=== PATIENT | female | born 1970 | race Caucasian/White ===

== ENCOUNTER 2023-01-27 09:40 | Outpatient (OUT) | payer OTHER, SELFPAY ==
--- NOTE | 2023-01-27 09:55 | MM_ITS ---
Patient: ANGELICA LANCE Exam Date: 01/27/2023 : 1970 Gender:F Ordering : DR Aidan Matias . Admission #: [id number] Family : Order #: [id number] CLICK HERE TO VIEW EXAM RADIOLOGY REPORT PROCEDURE: MM TOMOSYNTHESIS SCREENING BI COMPARISON: MG MAMM LEVI SCRN W CAD DIG, 01/11/2013. INDICATIONS: Screening mammogram Z12.31 Calculator Name NCI Breast Cancer Risk Assessment Tool 5 Year Breast Cancer Risk 1.30% Lifetime Breast Cancer Risk 12.10% Personal Breast Cancer No Personal Ovarian Cancer No Treatments None Family Cancers Father with colon, liver cancer at age 48. LOCATION: [facility] BREAST COMPOSITION: Scattered areas fibroglandular density. FINDINGS: DIAGNOSTIC CATEGORY 1--NEGATIVE. RIGHT BREAST: No significant suspicious finding. No significant change has occurred. LEFT BREAST: No significant suspicious finding. No significant change has occurred. RECOMMENDATIONS: ROUTINE MAMMOGRAM AND CLINICAL EVALUATION IN 12 MONTHS. PLEASE NOTE: A NORMAL MAMMOGRAM DOES NOT EXCLUDE THE POSSIBILITY OF BREAST CANCER. A CLINICALLY SUSPICIOUS PALPABLE LUMP SHOULD BE BIOPSIED. Dictated by: Jose Luis José M.D. on 01/27/2023 at 13:36 Approved by: Jose Luis José M.D. on 01/27/2023 at 13:37
== END 2023-01-27 09:41 | disposition home or self-care (01) ==
LOC: MAMMO 09:45
PROVIDERS: PCP Family Medicine; Visit Provider Family Medicine
DX: Z12.31 Encounter for screening mammogram for malignant neoplasm of breast (principal); Z80.0 Family history of malignant neoplasm of digestive organs
CPT/HCPCS: 77063; 77067

== ENCOUNTER 2023-02-02 09:08 | Outpatient (OUT) | payer OTHER, SELFPAY ==
[2023-02-02 09:39] LABS: Basophils Absolute Auto 0.1 10^3/uL (0.0-0.1); Basophils Percent Auto 0.7 % (0.2-2.0); Eosinophils Absolute Auto 0.2 10^3/uL (0.0-0.7); Eosinophils Percent Auto 2.5 % (0.9-7.0); Hematocrit 37.2 % (36.0-48.0); Immature Granulocytes Abs Auto 0.04 10^3/uL (0.00-0.03); Immature Granulocytes Pct Auto 0.4 % (0.0-0.5); Lymphocytes Absolute Auto 2.5 10^3/uL (1.2-3.8); Lymphocytes Percent Auto 28.3 % (20.5-60.0); Mean Corpuscular HGB Conc 32.3 g/dL (29.9-35.2); Mean Corpuscular Hemoglobin 28.5 pg (26.7-34.0); Mean Corpuscular Volume 88.4 fL (81.0-99.0); Mean Platelet Volume 8.9 fL (9.5-13.5); Monocytes Absolute Auto 0.6 10^3/uL (0.3-0.8); Monocytes Percent Auto 6.3 % (1.7-12.0); Neutrophils Absolute Auto 5.5 10^3/uL (1.4-6.5); Neutrophils Percent Auto 61.8 % (43.0-75.0); Platelet Count 256 10^3/uL (150-450); Red Blood Count 4.21 10^6/uL (4.20-5.40); Red Cell Distribution Width 13.5 % (11.0-15.0)
[2023-02-02 09:43] LABS: Estimated Average Glucose 131 mg/dL; Glycohemoglobin A1C 6.2 % (4.5-6.2)
[2023-02-02 10:06] LABS: Alanine Aminotransferase 26 U/L (14-59); Albumin Level 3.3 g/dL (3.4-5.0); Alkaline Phosphatase 86 U/L (46-116); Anion Gap 11.1; Aspartate Amino Transferase 14 U/L (15-37); BUN Creatinine Ratio 26.9; Bilirubin Total 0.3 mg/dL (0.2-1.0); Carbon Dioxide 26.7 mmol/L (21.0-32.0); Chloride 103 mmol/L (98-107); Chol HDL Ratio 5.7; Cholesterol 189 mg/dL (<=200); Estimated GFR (African America >60 (>=60); Estimated GFR (Non-African Ame >60 (>=60); Free T3 2.96 pg/mL (2.18-3.98); Globulin 3.4 g/dL; Glucose 122 mg/dL (74-106); HDL Cholesterol 33 mg/dL (40-60); Potassium 3.8 mmol/L (3.5-5.1); Sodium 137 mmol/L (136-145); Thyroid Stimulating Hormone 3.042 uIU/mL (0.358-3.740); Total Protein 6.7 g/dL (6.4-8.2); Triglycerides 156 mg/dL (<=150); VLDL CHOLESTEROL 31.2 mg/dL
== END 2023-02-02 09:09 | disposition home or self-care (01) ==
LOC: LAB 09:10
PROVIDERS: PCP Family Medicine; Visit Provider Family Medicine
DX: Z00.00 Encounter for general adult medical examination without abnormal findings (principal)
CPT/HCPCS: 36415; 80053; 80061; 83036; 84436; 84443; 84481; 85025

== ENCOUNTER 2024-07-31 10:02 | Outpatient (OUT) | payer OTHER, SELFPAY ==
[2024-07-31 10:20] LABS: Basophils Absolute Auto 0.1 10^3/uL (0.0-0.1); Basophils Percent Auto 0.7 % (0.2-2.0); Eosinophils Absolute Auto 0.2 10^3/uL (0.0-0.7); Eosinophils Percent Auto 2.5 % (0.9-7.0); Hematocrit 41.4 % (36.0-48.0); Hemoglobin 13.9 g/dL (12.0-16.0); Immature Granulocytes Abs Auto 0.07 10^3/uL (0.00-0.03); Immature Granulocytes Pct Auto 0.8 % (0.0-0.5); Lymphocytes Percent Auto 23.6 % (20.5-60.0); Mean Corpuscular HGB Conc 33.6 g/dL (29.9-35.2); Mean Corpuscular Hemoglobin 29.8 pg (26.7-34.0); Mean Corpuscular Volume 88.8 fL (81.0-99.0); Monocytes Absolute Auto 0.6 10^3/uL (0.3-0.8); Monocytes Percent Auto 6.5 % (1.7-12.0); Neutrophils Absolute Auto 5.6 10^3/uL (1.4-6.5); Neutrophils Percent Auto 65.9 % (43.0-75.0); Platelet Count 227 10^3/uL (150-450); Red Blood Count 4.66 10^6/uL (4.20-5.40); Red Cell Distribution Width 13.1 % (11.0-15.0); White Blood Count 8.5 10^3/uL (4.0-11.0)
[2024-07-31 10:43] LABS: Estimated Average Glucose 171 mg/dL; Glycohemoglobin A1C 7.6 % (4.5-6.2)
[2024-07-31 11:08] LABS: Alanine Aminotransferase 37 U/L (14-59); Albumin Globulin Ratio 0.9; Albumin Level 3.4 g/dL (3.4-5.0); Alkaline Phosphatase 103 U/L (46-116); Anion Gap 15.4; Aspartate Amino Transferase 31 U/L (15-37); BUN Creatinine Ratio 28.3; Bilirubin Total 0.4 mg/dL (0.2-1.0); Calcium 9.9 mg/dL (8.5-10.1); Carbon Dioxide 24.1 mmol/L (21.0-32.0); Chloride 101 mmol/L (98-107); Chol HDL Ratio 5.4; Cholesterol 194 mg/dL (<=200); Estimated GFR (African America >60 (>=60 mL/min/1.73m^2); Estimated GFR (Non-African Ame >60 (>=60 mL/min/1.73m^2); Free T3 2.67 pg/mL (2.18-3.98); Globulin 3.6 g/dL; Glucose 237 mg/dL (74-106); HDL Cholesterol 36 mg/dL (40-60); Potassium 4.5 mmol/L (3.5-5.1); Sodium 136 mmol/L (136-145); Thyroid Stimulating Hormone 1.918 uIU/mL (0.358-3.740); Triglycerides 203 mg/dL (<=150); VLDL CHOLESTEROL 40.6 mg/dL
== END 2024-07-31 10:03 | disposition home or self-care (01) ==
LOC: LAB 10:03
PROVIDERS: PCP Family Medicine; Visit Provider Family Medicine
DX: Z00.00 Encounter for general adult medical examination without abnormal findings (principal)
CPT/HCPCS: 36415; 80053; 80061; 83036; 84436; 84443; 84481; 85025

== ENCOUNTER 2024-10-14 16:31 | Emergency (ER) | payer OTHER, SELFPAY ==
[2024-10-14] VITALS (16 sets, daily range): BP systolic 123–164; BP diastolic 73–105; PULSE 83–96; TEMP 36.9; O2SAT 95–97; BMI 42.4
--- NOTE | 2024-10-14 16:49 | XR_ITS ---
[place] [id number] Patient Name: ANGELICA LANCE MRN: [id number] date: 1970 Sex: F Assigned Patient Location: ER Current Patient Location: ER Accession/Order Number: [id number] Exam Date: 10/14/2024 17:05 Report Date: 10/14/2024 17:06 At the request of: STEFF RAMIREZ MD Procedure: XR chest 1V XR chest 1V 10/14/2024 5:01 PM SIGNS AND SYMPTOMS: Chest pain PROTOCOL: Frontal radiograph of the chest COMPARISON: None FINDINGS: The trachea is midline. The heart and mediastinal structures are within normal limits. The lung parenchyma is clear. The bony thorax is intact. XR/XR chest 1V IMPRESSION: No acute cardiopulmonary pathology. Impression dictated by: Chirag De Luna M.D. 10/14/2024 5:06 PM Dictation Location: [place] [address] Electronically authenticated by: [id number] Y Date: 10/14/2024 17:06
--- NOTE | 2024-10-14 16:49 | ECG_ITS ---
[facility] Test Date: 2024-10-14 Pat Name: ANGELICA LANCE Department: Room: - Gender: Female Reel [employer]: : 1970 Requested By: [id number] Order Number: [id number] Reading MD: BRAYDON MARIO M.D. Measurements Intervals [place] Rate: 85 P: 48 WV: 152 QRS: 70 QRSD: 88 T: 101 QT: 354 QTc: 397 Interpretive Statements 1100 Sinus rhythm [address] depression [address] & [place] abnormality 9150 abnormal ECG No previous ECG available for comparison Electronically Signed On 10-14-2024 22:11:42 EDT by BRAYDON MARIO M.D.
--- NOTE | 2024-10-14 16:54 | ED.GENADUL1 ---
HPI HPI - General Adult General Chief complaint: Chest Pain Stated complaint: chest pains Time Seen by Provider: 10/14/24 16:37 Source: patient and family Mode of arrival: walk-in Limitations: no limitations History of Present Illness HPI narrative: 54-year-old female presents for chest pain. This has been intermittent for the past 3 days. When she gets it the pain is located in the middle part of her chest and between her shoulder blades. Sometimes it goes up into her bilateral jaw. She does not have this symptom now. She is never had this previously and has never had a stress test. It seemed to that first come on with exertion but now it is coming on at rest. She has no personal history of heart disease but her mother in her late 50s from heart disease. The patient has diabetes and hypertension. She is a non-smoker. Related Data Home Medications ?Medication ?Instructions ?Recorded ?Confirmed amlodipine 10 mg tablet 10 mg PO DAILY 10/14/24 10/14/24 dorzolamide 22.3 mg-timolol 6.8 1 drp ophthalmic (eye) Q12H 10/14/24 10/14/24 mg/mL eye drops glimepiride 4 mg tablet 8 mg PO DAILY 10/14/24 10/14/24 irbesartan 300 mg tablet 300 mg PO DAILY 10/14/24 10/14/24 metformin 500 mg tablet 750 mg PO BID 10/14/24 10/14/24 metoprolol tartrate 50 mg tablet 75 mg PO BID 10/14/24 10/14/24 Allergies Allergy/AdvReac Type Severity Reaction Status Date / Time No Known Drug Allergies Allergy Verified 10/14/24 16:34 Review of Systems ROS Narrative A ten point review of systems is negative except as noted above. PFSH PFSH Social History Little interest or pleasure in doing things: not at all Feeling down, depressed, or hopeless: not at all Exam Narrative Exam Narrative: Nurses note and vital signs reviewed and patient is not hypoxic. General: The patient appears well and in no apparent distress. Patient is resting comfortably on cart. Skin: Warm, dry, no pallor noted. There is no rash noted. Head: Normocephalic, atraumatic Eye: Normal conjunctiva, no drainage Ears, Nose, Mouth, and Throat: oral mucosa is moist. Nares patent. Cardiovascular: Regular Rate and Rhythm Respiratory: Patient is in no distress, no accessory muscle use, lungs are clear to auscultation, no wheezing, rales or rhonchi Back: non-tender GI: Soft and nontender Musculoskeletal: The patient has no evidence of calf tenderness, no pitting edema, symmetrical pulses noted bilaterally Neurological: A&O, normal speech Psychiatric: Cooperative Constitutional Vital Signs, click to edit/add: Last Vital Signs Temp 98.4 F 10/14/24 16:34 Pulse 96 H 10/14/24 18:20 Resp 20 10/14/24 18:20 BP 164/96 H 10/14/24 18:20 Pulse Ox 96 10/14/24 18:20 O2 Del Method Room Air 10/14/24 16:34 Course Vital Signs Vital signs: Vital Signs Temperature 98.4 F 10/14/24 16:34 Pulse Rate 90 10/14/24 16:34 Respiratory Rate 18 10/14/24 16:34 Blood Pressure 161/105 H 10/14/24 16:34 Pulse Oximetry 97 10/14/24 16:34 Oxygen Delivery Method Room Air 10/14/24 16:34 Temperature 98.4 F 10/14/24 16:34 Pulse Rate 96 H 10/14/24 18:20 Respiratory Rate 20 10/14/24 18:20 Blood Pressure 164/96 H 10/14/24 18:20 Pulse Oximetry 96 10/14/24 18:20 Oxygen Delivery Method Room Air 10/14/24 16:34 Medical Decision Making MDM Narrative Medical decision making narrative: NSTEMI is identified. She was given aspirin and then heparin drip. She has not had any chest pain here. EKG showed some ST depression inferolaterally and her initial troponin is 191 with repeat pending. She is hemodynamically stable and agreeable for transfer. I have spoken to the hospitalist at [facility] who accepts the patient. Treatment diagnosis and disposition were discussed with the patient. Differential Diagnosis Differential Diagnosis: STEMI, NSTEMI, atypical chest pain Lab Data Lab results reviewed: Yes I reviewed the patient's lab results Labs: Lab Results 10/14/24 10/14/24 Range/Units 16:53 16:57 WBC 9.6 (4.0-11.0) 10^3/uL RBC 4.55 (4.20-5.40) 10^6/uL Hgb 13.9 (12.0-16.0) g/dL Hct 39.9 (36.0-48.0) % MCV 87.7 (81.0-99.0) fL MCH 30.5 (26.7-34.0) pg MCHC 34.8 (29.9-35.2) g/dL RDW 13.2 (11.0-15.0) % Plt Count 218 (150-450) 10^3/uL MPV 9.5 (9.5-13.5) fL Neut % (Auto) 69.7 (43.0-75.0) % Lymph % (Auto) 20.0 L (20.5-60.0) % [place] % (Auto) 6.4 (1.7-12.0) % Eos % (Auto) 2.6 (0.9-7.0) % Baso % (Auto) 0.5 (0.2-2.0) % Neut # (Auto) 6.7 H (1.4-6.5) 10^3/uL Lymph # (Auto) 1.9 (1.2-3.8) 10^3/uL [place] # (Auto) 0.6 (0.3-0.8) 10^3/uL Eos # (Auto) 0.3 (0.0-0.7) 10^3/uL Baso # (Auto) 0.1 (0.0-0.1) 10^3/uL Abs Immat Gran (auto) 0.08 H (0.00-0.03) 10^3/uL Imm/Tot Granulo (auto) 0.8 H (0.0-0.5) % Sodium 142 (136-145) mmol/L Potassium 4.1 (3.5-5.1) mmol/L Chloride 102 (98-107) mmol/L Carbon Dioxide 27.1 (21.0-32.0) mmol/L Anion Gap 17.0 BUN 18.0 (7.0-18.0) mg/dL Creatinine 0.57 (0.55-1.02) mg/dL Est GFR ( Amer) >60 (>=60 mL/min/1.73m^2) Est GFR (Non-Af Amer) >60 (>=60 mL/min/1.73m^2) BUN/Creatinine Ratio 31.6 Glucose 269 H (74-106) mg/dL Calcium 10.2 H (8.5-10.1) mg/dL Troponin I High Sens 191.9 H* (4.0-51.3) pg/mL POC Glucose 253 H (74-106) mg/dL Imaging Data Chest x-ray: Radiologist's impression: ITS Impressions Chest X-Ray 10/14/24 16:49 IMPRESSION: No acute cardiopulmonary pathology. Impression dictated by: Chirag De Luna M.D. 10/14/2024 5:06 PM Dictation Location: [place] [address] Electronically authenticated by: [id number] Y Date: 10/14/2024 17:06 ECG Data Attestation: I personally reviewed and interpreted this ECG as follows: (EKG on my interpretation shows normal sinus rhythm with a rate of 85. There is slight ST depression inferiorly and laterally) Critical Care Time Critical Care Time Critical Care Time: Yes Total Critical Care Time: 50 Attestation: Due to the high probability of sudden and clinically significant deterioration in the patient's condition he/she required the highest level of my preparedness to intervene urgently I provided critical care time including documentation time, medication orders and management, reevaluation, vital sign assessment, ordering and reviewing of lab tests, ordering and reviewing of x-ray studies, and admission orders. Aggregate critical care time is 50 minutes including only time during which I was engaged in work directly related to his/her care and did not include time spent treating other patients simultaneously. Discharge Plan Discharge Chief Complaint: Chest Pain Clinical Impression: Non-ST elevation NC (NSTEMI) Patient Disposition: [facility] Time of Disposition Decision: 18:50 Discharge Location: [facility] Condition: Fair Mode of Transportation: EMS
[2024-10-14 16:57] LABS: Glucometer 253 mg/dL (74-106)
[2024-10-14 17:05] LABS: Basophils Absolute Auto 0.1 10^3/uL (0.0-0.1); Basophils Percent Auto 0.5 % (0.2-2.0); Eosinophils Absolute Auto 0.3 10^3/uL (0.0-0.7); Eosinophils Percent Auto 2.6 % (0.9-7.0); Hematocrit 39.9 % (36.0-48.0); Hemoglobin 13.9 g/dL (12.0-16.0); Immature Granulocytes Abs Auto 0.08 10^3/uL (0.00-0.03); Immature Granulocytes Pct Auto 0.8 % (0.0-0.5); Lymphocytes Absolute Auto 1.9 10^3/uL (1.2-3.8); Mean Corpuscular HGB Conc 34.8 g/dL (29.9-35.2); Mean Corpuscular Hemoglobin 30.5 pg (26.7-34.0); Mean Corpuscular Volume 87.7 fL (81.0-99.0); Mean Platelet Volume 9.5 fL (9.5-13.5); Monocytes Absolute Auto 0.6 10^3/uL (0.3-0.8); Monocytes Percent Auto 6.4 % (1.7-12.0); Neutrophils Absolute Auto 6.7 10^3/uL (1.4-6.5); Neutrophils Percent Auto 69.7 % (43.0-75.0); Platelet Count 218 10^3/uL (150-450); Red Blood Count 4.55 10^6/uL (4.20-5.40); Red Cell Distribution Width 13.2 % (11.0-15.0); White Blood Count 9.6 10^3/uL (4.0-11.0)
[2024-10-14 17:21] LABS: BUN Creatinine Ratio 31.6; Calcium 10.2 mg/dL (8.5-10.1); Carbon Dioxide 27.1 mmol/L (21.0-32.0); Chloride 102 mmol/L (98-107); Estimated GFR (African America >60 (>=60 mL/min/1.73m^2); Estimated GFR (Non-African Ame >60 (>=60 mL/min/1.73m^2); Glucose 269 mg/dL (74-106); Potassium 4.1 mmol/L (3.5-5.1); Sodium 142 mmol/L (136-145)
[2024-10-14 17:25] LABS: Troponin I High Sensitivity 191.9 pg/mL (4.0-51.3)
[2024-10-14] MEDS: ASPIRIN 81 MG TAB.CHEW 324 MG PO (17:30)
[2024-10-14] MEDS: HEPARIN SODIUM,PORCINE/D5W 25,000 UNIT/500 ML IV.SOLN 16.032 UNIT IV (18:22)
[2024-10-14] MEDS: HEPARIN SODIUM (PORCINE) 5,000 UNIT/ML VIAL 4000 UNIT IV (18:28)
--- NOTE | 2024-10-14 19:15 | PC.NURSE ---
i walked into this patient's room to find this patient sitting upright awake and alert talking to her . i did introduced myself to this patient and her . this patient denies any chest pain or shortness of breath, this patient aware waiting on a phone call from [facility]. 2 trop collected and sent to to lab dept this patient voices no concerns and shows no signs of distress
[2024-10-14 19:37] LABS: Troponin I High Sensitivity 248.5 pg/mL (4.0-51.3)
[2024-10-14 19:52] LABS: INR 0.97; Prothrombin Time 10.3 sec (9.0-11.6)
[2024-10-14 19:58] LABS: Partial Thromboplastin Time 24.1 sec (22.3-36.2)
--- NOTE | 2024-10-14 20:45 | PC.NURSE ---
this patient was informed patient her room number at [facility] will room 4031 and transport will arrive at 9:15 pm tonight. this patient voices no concerns and shows no signs of distress
== END 2024-10-14 21:31 | disposition short-term general hospital (02) ==
PROVIDERS: Emergency Provider Emergency Medicine; PCP Family Medicine
DX: I21.4 Non-ST elevation (NSTEMI) myocardial infarction (principal); E11.9 Type 2 diabetes mellitus without complications; I10 Essential (primary) hypertension; Z79.84 Long term (current) use of oral hypoglycemic drugs
CPT/HCPCS: 36415; 71045; 80048; 84484; 85025; 85610; 85730; 93005; 96365; 96366; 96376; 99285; J1644